=== PATIENT | male | born 1945 | race African-American/Black ===

== ENCOUNTER 2017-10-19 07:09 | Day surgery (SDC) | payer OTHER ==
[~2017-10-19 07:09] MED LIST: LIDOCAINE 2% (SDV) 5 ML INJ
[2017-10-19] MEDS ORDERED: ONDANSETRON 4 MG INJ (08:29)
[2017-10-19] MEDS ORDERED: FENTAnyl 50 MCG/ML VIAL (08:29)
[2017-10-19] MEDS ORDERED: PROPOFOL 20 ML (08:29)
[2017-10-19] MEDS ORDERED: CEFAZOLIN 1 GM INJ (08:30)
[2017-10-19] MEDS: BUPIVACAINE 0.5% (SDV) 30 ML INJ (10:37)
[2017-10-19] MEDS ORDERED: FENTAnyl 50 MCG/ML VIAL IV (11:00)
[2017-10-19] MEDS ORDERED: HYDROmorphONE (0.2 MG/ML) 10ML SYG IV ×2 (11:00)
[2017-10-19] MEDS ORDERED: KETOROLAC 30 MG INJ IV (11:00)
[2017-10-19] MEDS ORDERED: ONDANSETRON 4 MG INJ IV (11:00)
== END 2017-10-19 14:10 | disposition home or self-care (01) ==
LOC: SDS 07:09
DX: M21.961 Unspecified acquired deformity of right lower leg (principal); M67.471 Ganglion, right ankle and foot; J44.9 Chronic obstructive pulmonary disease, unspecified
CPT/HCPCS: 28092; 88304; 88311